=== PATIENT | female | born 1990 | race African-American/Black ===

== ENCOUNTER 2018-12-20 16:54 | Emergency (ER) | payer OTHER ==
[~2018-12-20] VITALS: Ht 160 cm; Wt 65.8 kg
[2018-12-20] MEDS ORDERED: PROAIR HFA8.5 GM INH (18:16)
[2018-12-20] MEDS ORDERED: NAPROSYN500 MG PO (18:16)
[2018-12-20 18:26] VITALS: BP 130/90
--- NOTE | 2018-12-21 07:57 | EKG ---
[address] [place] [address] ELECTROCARDIOGRAM REPORT Name: TRAYMICKY Room #: [facility] [place]#: [id number] Admission: 12/20/18 Attend Phys: Discharge: 12/20/18 Date of : 89 Report #: [id number] THIS REPORT FOR: //name// [facility] ED Test Date: 2018-12-20 Test Time: 17:40:54 Pat Name: MICKY FELIZ Department: Room: Gender: F [employer] Specialist: KATI : 1990 Requested By: Skip Mayes Order Number: [id number] MD: Brenden Nj Measurements Intervals [place] Rate: 71 P: 20 CT: 139 QRS: 34 QRSD: 88 T: 22 QT: 359 QTc: 391 Interpretive Statements Sinus arrhythmia Normal tracing No previous ECG available for comparison Electronically Signed On 12-21-2018 7:57:32 [employer] WORK[employer] by Brenden Nj [email or web address] <ELECTRONICALLY SIGNED> By: Brenden Nj MD, MERGED WITH [facility] 12/21/18 [id number] 1740 Brenden Nj MD, FACC /EPI
== END 2018-12-20 18:27 | disposition home or self-care (01) ==
LOC: ER 16:54
DX: J20.8 Acute bronchitis due to other specified organisms (principal); B97.89 Other viral agents as the cause of diseases classified elsewhere; F17.210 Nicotine dependence, cigarettes, uncomplicated